=== PATIENT | female | born 1940 | race Caucasian/White ===

== ENCOUNTER 2017-08-03 17:36 | Emergency (ER) | payer MEDICARE ==
[~2017-08-03] VITALS: Ht 165.1 cm; Wt 90.0 kg
[~2017-08-03 17:36] MED LIST: ACETAMIN325 MG PO; ALEVE220 M2 PO; AMOX/K CLAV875 M1 PO; AMOXICILLIN500 MG PO; ANTIVERT12.5 MG PO; AZELASTINE0.1 %; AZOPT1 % OU; BOOSTRIX IM; CALCIUM500 M3 OR; DILAUDID 2MG2 MG/TA1 PO; EYE DROP2 OP; FLEXERIL OR; FLORASTOR250 M1 PO; FLUARIX QUADRIV1 INJ IM; FLUTICASONE50 MCG; INFANRIX IM; KEFLEX500 MG PO; LORTAB5 PO; LUMIGAN0.01 % OP; MEDDOSEPAK PO; METAMUCIL MULT58.6 % OR; MIRALAX3350 NF PO; MONTELUKAST SOD10 MG PO; MULTI PO; NEURONTIN300 MG PO; NO MEDS; OMNICEF300 MG PO; PROCTOFOAM1 AER RE; SERTRALINE25 MG PO; SMZ-TMP DS1 TAB PO; STOOL SOFTE1 OR; ULTRAM50 M1 PO; ULTRAM50 MG OR; VITAMIN C500 MG OR; VITAMIN D33000 UNIT PO; VITAMIN D5000 UNIT PO; XGEVA SC; [UNRECOGNIZED DRUG - OTHER] NAB; [UNRECOGNIZED DRUG - OTHER] PO
[2017-08-03 18:44] VITALS: BP 120/60
== END 2017-08-03 18:50 | disposition home or self-care (01) ==
LOC: ED 17:36
DX: S51.811A Laceration without foreign body of right forearm, initial encounter (principal); W22.8XXA Striking against or struck by other objects, initial encounter; Y93.E9 Activity, other interior property and clothing maintenance; Y92.009 Unspecified place in unspecified non-institutional (private) residence as the place of occurrence of the external cause

== ENCOUNTER 2017-11-14 18:16 | Emergency (ER) | payer MEDICARE ==
[~2017-11-14] VITALS: Ht 165.1 cm; Wt 88.0 kg
[2017-11-14] MEDS ORDERED: IBUPROFEN600 MG PO (19:06)
[2017-11-14 19:25] VITALS: BP 145/77
== END 2017-11-14 19:25 | disposition home or self-care (01) ==
LOC: ED 18:16
DX: M79.602 Pain in left arm (principal); M25.512 Pain in left shoulder; M19.90 Unspecified osteoarthritis, unspecified site; M79.7 Fibromyalgia; F17.210 Nicotine dependence, cigarettes, uncomplicated

== ENCOUNTER 2019-03-24 15:52 | Emergency (ER) | payer MEDICARE ==
[~2019-03-24] VITALS: Ht 165.1 cm; Wt 80.0 kg
[~2019-03-24 15:52] MED LIST changes: +IBUPROFEN600 MG PO
[2019-03-24 16:52] LABS: URINE BILIRUBIN - DIPSTICK NEGATIVE (NEGATIVE); URINE BLOOD DIPSTICK NEGATIVE (NEGATIVE); URINE COLOR YELLOW; URINE GLUCOSE - DIPSTICK NEGATIVE (NEGATIVE); URINE KETONE NEGATIVE (NEGATIVE); URINE LEUK ESTERASE NEGATIVE (Negative); URINE NITRITE - DIPSTICK POSITIVE (Negative); URINE PH 5.5 (4.5-8.0); URINE PROTEIN - DIPSTICK NEGATIVE (NEG-TRACE); URINE SPECIFIC GRAVITY 1.025; URINE UROBILINOGEN - DIPSTICK 0.2 E.U./dL (0.2)
[2019-03-24 16:54] LABS: URINE CLARITY CLEAR
[2019-03-24 17:00] LABS: URINE BACTERIA FEW hpf; URINE RBC 0-2 RBC/hpf (0-5); URINE SQUAMOUS EPITHELIAL CELL FEW EPI/hpf (0-FEW); URINE WBC 0-2 WBC/hpf (0-5)
[2019-03-24] MEDS ORDERED: KEFLEX500 M1 PO (17:17)
[2019-03-24] MEDS ORDERED: PYRIDIUM200 MG PO (17:17)
[2019-03-24 17:25] VITALS: BP 139/74
== END 2019-03-24 17:25 | disposition home or self-care (01) ==
LOC: ED 15:52
DX: M54.6 Pain in thoracic spine (principal); G89.29 Other chronic pain; N39.0 Urinary tract infection, site not specified; M19.90 Unspecified osteoarthritis, unspecified site; F17.200 Nicotine dependence, unspecified, uncomplicated; B95.7 Other staphylococcus as the cause of diseases classified elsewhere

== ENCOUNTER 2019-04-07 20:05 | Emergency (ER) | payer MEDICARE ==
[~2019-04-07] VITALS: Ht 160 cm; Wt 84.0 kg
[~2019-04-07 20:05] MED LIST changes: +KEFLEX500 M1 PO; +PYRIDIUM200 MG PO
[2019-04-07] MEDS ORDERED: DORZOLAMIDE HCL2 % OU (20:33)
[2019-04-07] MEDS ORDERED: TIMOLOL 0.5%5 ML OU (20:35)
[2019-04-07] MEDS ORDERED: ARNUITY EL50 MCG/ACT IN (20:36)
[2019-04-07] MEDS ORDERED: BRIMONIDINE0.2 % OU (20:38)
[2019-04-07] MEDS ORDERED: NITROFURANTN100 M2 PO (20:39)
[2019-04-07] MEDS ORDERED: TRAMADOL HCL50 MG PO (20:52)
[2019-04-07 21:09] VITALS: BP 152/85
== END 2019-04-07 21:09 | disposition home or self-care (01) ==
LOC: ED 20:05
DX: M54.5 Low back pain (principal); G89.29 Other chronic pain; M19.90 Unspecified osteoarthritis, unspecified site; M79.7 Fibromyalgia; F17.200 Nicotine dependence, unspecified, uncomplicated

== ENCOUNTER 2020-02-07 15:58 | Emergency (ER) | payer MEDICARE ==
[~2020-02-07] VITALS: Ht 160 cm; Wt 90.0 kg
[~2020-02-07 15:58] MED LIST changes: +ARNUITY EL50 MCG/ACT IN; +BRIMONIDINE0.2 % OU; +DORZOLAMIDE HCL2 % OU; +NITROFURANTN100 M2 PO; +TIMOLOL 0.5%5 ML OU; +TRAMADOL HCL50 MG PO
[2020-02-07] MEDS ORDERED: FLEXERIL PO (16:26)
[2020-02-07] MEDS ORDERED: ULTRAM50 M1 PO (16:26)
[2020-02-07 16:35] VITALS: BP 171/78
== END 2020-02-07 16:37 | disposition home or self-care (01) ==
LOC: ED 15:58
DX: M47.812 Spondylosis without myelopathy or radiculopathy, cervical region (principal); F17.210 Nicotine dependence, cigarettes, uncomplicated

== ENCOUNTER 2022-09-23 12:27 | Emergency (ER) | payer MEDICARE ==
[2022-09-23] VITALS (9 sets, daily range): BP systolic 122–149; BP diastolic 70–85
[~2022-09-23] VITALS: Ht 160 cm; Wt 79.0 kg
[~2022-09-23 12:27] MED LIST changes: +FLEXERIL PO
[2022-09-23] MEDS ORDERED: DECADRON2 MG PO (14:13)
[2022-09-23] MEDS ORDERED: ALBUTEROL SUL1.25 MG IN ×2 (14:13→15:26)
[2022-09-23] MEDS ORDERED: PAXLOVID PO ×2 (14:13→14:29)
[2022-09-23] MEDS ORDERED: ZPAK PO (14:13)
[2022-09-23] MEDS ORDERED: MUCUS+CHES200 MG/10 PO (14:21)
== END 2022-09-23 15:37 | disposition home or self-care (01) ==
LOC: ED 12:27
DX: U07.1 COVID-19 (principal); R05.9 Cough, unspecified; R06.02 Shortness of breath; R09.81 Nasal congestion; F17.200 Nicotine dependence, unspecified, uncomplicated

== ENCOUNTER 2022-12-11 12:35 | Emergency (ER) | payer MEDICARE ==
[2022-12-11] VITALS (13 sets, daily range): BP systolic 122–140; BP diastolic 67–83
[~2022-12-11] VITALS: Ht 160 cm; Wt 90.0 kg
[~2022-12-11 12:35] MED LIST changes: +ALBUTEROL SUL1.25 MG IN; +DECADRON2 MG PO; +MUCUS+CHES200 MG/10 PO; +PAXLOVID PO; +ZPAK PO
[2022-12-11] MEDS ORDERED: DORZOLAMIDE HCL2 % (12:42)
[2022-12-11] MEDS ORDERED: ARNUITY EL50 MCG/ACT NAB (12:44)
[2022-12-11] MEDS ORDERED: BRIMONIDINE0.2 % (12:45)
[2022-12-11] MEDS ORDERED: XELPROS0.005 % (12:46)
[2022-12-11] MEDS ORDERED: LEVOTHYROXIN175 MC1 PO (12:47)
[2022-12-11] MEDS ORDERED: PROLIA60 MG/ML SC (12:48)
[2022-12-11] MEDS ORDERED: PREGABALIN75 MG (12:48)
[2022-12-11 13:18] LABS: BASO% 0.8 % (0-3); EOS% 0.5 % (0-8); IMMATURE GRANULOCYTES 0.3 % (0.0-5.0); LYMPH% 5.1 % (15-41); MEAN CORPUSCULAR HGB 27.1 pG CALC (26.0-32.0); MEAN CORPUSCULAR HGB CONC 29.9 g/dL CAL (32.0-36.0); MONO% 5.4 % (2-13); NEUT# 9.73 thou/uL (2.00-7.15); NEUT% 87.9 % (42-76); RED BLOOD COUNT 3.91 mill/uL (4.20-5.60); RED CELL DISTRI WIDTH 15.9 % (11.5-15.5); URINE BILIRUBIN - DIPSTICK NEGATIVE (NEGATIVE); URINE BLOOD DIPSTICK LARGE (NEGATIVE); URINE COLOR YELLOW; URINE GLUCOSE - DIPSTICK NEGATIVE (NEGATIVE); URINE KETONE NEGATIVE (NEGATIVE); URINE PH 6.5 (4.5-8.0); URINE PROTEIN - DIPSTICK 100 mg/dL (NEG-TRACE); URINE UROBILINOGEN - DIPSTICK 0.2 E.U./dL (0.2)
[2022-12-11 13:23] LABS: HEMATOCRIT 35.5 % (37.0-47.0); HEMOGLOBIN 10.6 g/dl (12.0-16.0); MEAN CELL VOLUME 90.8 fL CALC (80.0-100.0)
[2022-12-11 13:24] LABS: URINE LEUK ESTERASE MODERATE (NEGATIVE); URINE NITRITE - DIPSTICK NEGATIVE (Negative)
[2022-12-11 13:26] LABS: URINE BACTERIA MODERATE hpf; URINE EPITHELIAL CELLS MANY EPI/hpf (0-FEW)
[2022-12-11 13:27] LABS: ALBUMIN 3.9 g/dL (3.2-5.0); ALKALINE PHOSPHATASE 81 u/l (38-126); ANION GAP 9 (6-22 (CALC)); BILIRUBIN, TOTAL 0.4 mg/dL (0.02-1.3); BUN 22 mg/dL (8-23); BUN/CREATININE RATIO 27 (12-20 (CALC)); CARBON DIOXIDE 29 mmol/l (22-30); CHLORIDE 101 mmol/l (95-108); CREATININE 0.8 mg/dL (0.5-1.0); GFR FOR AFR.AMER. > 60 ML/MIN (>=60 (CALC)); GFR OTHER RACES > 60 ML/MIN (>=60 (CALC)); POTASSIUM 4.3 mmol/l (3.5-5.1); SODIUM 135 mmol/l (137-146); TOTAL PROTEIN 6.5 g/dL (6.3-8.2)
[2022-12-11 13:28] LABS: SGOT/AST 69 u/l (9-36)
--- NOTE | 2022-12-13 11:17 | NUR ---
PRELIMINARY BC SHOWS GRAM (+) COCCI IN 4/4 VIALS. PATIENT WAS TRANSFERRED TO [facility]. FINAL URINE AND PRELIMINARY BC RESULTS FAXED TO [facility] NURSE LATRELL Dalton @ [phone].
== END 2022-12-11 20:20 | disposition short-term general hospital (02) ==
LOC: ED 12:35
PROVIDERS: Family Medicine
DX: R53.1 Weakness (principal); N81.10 Cystocele, unspecified; R82.71 Bacteriuria; H91.90 Unspecified hearing loss, unspecified ear; M79.7 Fibromyalgia; F17.200 Nicotine dependence, unspecified, uncomplicated; Z91.81 History of falling; Z20.822 Contact with and (suspected) exposure to COVID-19